=== PATIENT | female | born 1955 | race Asian ===

== ENCOUNTER 2017-06-02 13:38 | Inpatient (IN) | payer MEDICAID ==
--- NOTE | 2017-06-02 14:30 | ED Physician Chart ---
ED Chief Complaint/HPI - Patient Information Date Seen:: 06/02/17 Time Seen:: 14:00 Chief Complaint:: Chest Pain History of Present Illness:: onset x one day of intermittent, exertional, pressure type chest pain, dyspnea, and anxiety; pt denies trauma, H/as, S/T, neck pain, cough, Abd. Pain, A/N/V/D/C , fever, chills, or urinary s/s Allergies:: Allergies Allergy/AdvReac Type Severity Reaction Status Date / Time No Known Allergies Allergy Verified 04/06/16 17:24 Vitals:: Vital Signs - 8 hr 06/02/17 14:04 Temp 98.1 F HR 80 RR 16 BP 154/88 O2 Sat % 98 Historian:: Patient Review:: Nurse's Note Reviewed ED Review of Systems - Review of Systems General/Constitutional: No fever, No chills, No weight loss, No weakness, No diaphoresis, No edema, No loss of appetite Skin: No skin lesions, No rash, No bruising Head: No headache, No light-headedness Eyes: Acuity change, Pain, No pain, No diplopia ENT: No earache, No nasal drainage, No sore throat, No tinnitus Neck: No neck pain, No swelling, No thyromegaly, No stiffness, No mass noted Cardio Vascular: Chest pain, No palpitations, No PND, No orthopnea, No edema Pulmonary: SOB, No cough, No sputum, No wheezing GI: No nausea, No vomiting, No diarrhea, No pain, No melena, No hematochezia, No constipation, No hematemesis G/U: No dysuria, No frequency, No hematuria Director Housekeeping: No vaginal discharge, No abnormal vaginal bleed, No contraction Musculoskeletal: No bone or joint pain, No back pain, No muscle pain Endocrine: No polyuria, No polydipsia Psychiatric: No prior psych history, No depression, No anxiety, No suicidal ideation, No homicidal ideation, No auditory hallucination, No visual hallucination Hematopoietic: No bruising, No lymphadenopathy Allergic/Immuno: No urticaria, No angioedema Neurological: No syncope, No focal symptoms, No weakness, No paresthesia, No headache, No seizure, No dizziness, No confusion, No vertigo ED Past Medical History - Past Medical History Obtainable: Yes Past Medical History: Other (Glaucoma) Family History: HTN Social History: Non Smoker, No Alcohol, No Drug Use, Single Surgical History: None Psychiatricy History: None Medication: Reviewed Family Medical History - Family Member Father Ethnicity: Non- Living Status: Hx Family Cancer: Yes Hx Family Hypertension: Yes ED Physical Exam - Physical Examination General/Constitutional: Awake, Well-developed, well-nourished, Alert, No distress, GCS 15, Non-toxic appearing, Ambulatory Head: Atraumatic Eyes: Lids, conjuctiva normal, PERRL, EOMI Skin: Nl inspection, No rash, No skin lesions, No ecchymosis, Well hydrated, No lymphadenopathy ENMT: External ears, nose nl, TM canals nl, Nasal exam nl, Lips, teeth, gums nl , Oropharynx nl, Tonsils nl Neck: Nontender, Full ROM w/o pain, No JVD, No nuchal rigidity, No bruit, No mass, No stridor Respiratory: Nl effort/Exclusion, Clear to Auscultation, No Wheeze/Rhonchi/Rales Cardio Vascular: RRR, No murmur, gallop, rubs, NL S1 S2, Carotid/Femoral/Distal pulses equal bilaterally GI: No tenderness/rebounding/guarding, No organomegaly, No hernia, Normal BS's, Nondistended, No mass/bruits, No McBurney tenderness : No CVA tenderness Extremities: No tenderness or effusion, Full ROM, normal strength in all extremities, No edema, Normal digits & nails Neuro/Psych: Alert/oriented, DTR's symmetric, Normal sensory exam, Normal motor strength, Judgement/insight normal, Mood normal, Normal gait, No focal deficits Misc: Normal back, No paraspinal tenderness ED Labs/Radiology/EKG Results - Lab Results Comments:: Elevated Triglycerides and Cholesterol Levels - Radiology Results Comments:: CXR: NAD; COPD - EKG Interpretations EKG Time:: 14:41 Rate & Rhythm: 83; NSR Comments:: T-Wave Inversions; non-specific st-t changes ED Septic Shock - . Is Septic Shock (SBP<90, OR Lactate>4 mmol\L) present?: No - <6hrs of presentation: Vital Signs: Vital Signs - 8 hr 06/02/17 14:04 Temp 98.1 F HR 80 RR 16 BP 154/88 O2 Sat % 98 ED Reassessment (Disposition) - Diagnosis Diagnosis:: Dx: Myocardial Ischemia; Chest Pain; Dyspnea; Hyperlipidemia
[2017-06-02 14:48] LABS: % BASOPHILS 0.5 % (0.0-2.0); % EOSINOPHILS 3.3 % (0.0-5.0); % LYMPHOCYTES 38.7 % (20.0-50.0); % MONOCYTES 6.7 % (2.0-10.0); % NEUTROPHILS 50.8 % (40.0-80.0); EOSINOPHILE ABSOLUTE 0.2 Th/cmm (0.1-0.4); HEMATOCRIT 41.8 % (41.0-60); HEMOGLOBIN 14.2 gm/dL (12-16); LYMPHOCYTE ABSOLUTE 2.4 Th/cmm (1.5-3.0); MEAN CELL VOLUME 89.9 fl (81-100); MEAN CORPUSCULAR HEMOGLOBIN 30.6 pg (27.0-31.0); MEAN PLATELET VOLUME 7.2 fl; MONOCYTE ABSOLUTE 0.4 Th/cmm (0.3-1.0); NEUTROPHILE ABSOLUTE 3.2 Th/cmm (1.8-8.0); PLATELET COUNT 296 Th/cmm (150-400); RED BLOOD COUNT 4.65 Mil/cmm (3.80-5.10); RED CELL DISTRIBUTION WIDTH 11.9 % (11.5-20.0); WHITE BLOOD COUNT 6.2 Th/cmm (4.8-10.8)
--- NOTE | 2017-06-02 14:50 | Diagnostic Imaging Report ---
CHEST X-RAY: AP view INDICATION: pain COMPARISON: None FINDINGS: Chronic interstitial lung changes are noted. There is no focal consolidation or pleural effusions The heart is normal in size. The osseous structures demonstrate no acute abnormalities. IMPRESSION: Chronic interstitial lung changes. No focal consolidation identified.
[2017-06-02] MEDS ORDERED: Aspirin 325 mg EC PO ONE (14:58)
[2017-06-02 15:07] LABS: ALBUMIN 4.9 gm/dL (3.7-5.3); ALKALINE PHOSPHATASE 71 U/L (34-104); ANION GAP 11.6 (7.0-16.0); BILIRUBIN,TOTAL 0.4 mg/dL (0.3-1.0); BUN - UREA NITROGEN 12 mg/dL (7-25); CALCIUM SERUM 9.6 mg/dL (8.6-10.3); CARBON DIOXIDE 27.4 mEq/L (21.0-31.0); CHLORIDE 103 mEq/L (98-107); CHOLESTEROL 256 mg/dL (<200); CREATININE - SERUM 0.6 mg/dL (0.6-1.2); CREATININE KINASE 117 U/L (30-223); GFR AFRICAN-AMERICAN > 60.0 ml/min (>90); GFR NON AFRICAN-AMERICAN > 60.0 ml/min; GLUCOSE 93 mg/dL (70-105); HDL -HIGH DENSITY LIPOPROTEIN 45 mg/dL (23-92); SGOT 33 U/L (13-39); SGPT/ALT 45 U/L (7-52); SODIUM SERUM 138 mEq/L (136-145); TOTAL PROTEIN,SERUM 7.4 gm/dL (6.0-8.3); TRIGLYCERIDES 459 mg/dL (<150)
[2017-06-02 15:21] LABS: DDIMER QUANT 100 ng/mL (100-400)
[2017-06-02 15:22] LABS: INR 0.91 (0.5-1.4); PROTHROMBIN TIME (TEST) 9.5 SECONDS (9.5-11.5)
[2017-06-02] MEDS ORDERED: Aspirin 81mg Chewable Tab ONE (15:24)
[2017-06-02] MEDS ORDERED: Morphine Sulfate 2 mg/mL 1mL Syr IM PRN (17:29)
[2017-06-03 06:21] VITALS: BP 128/62
[2017-06-03] MEDS: D5-0.45NS 1,000 ML IV SCH ×2 (06:54→20:15)
--- NOTE | 2017-06-03 16:36 | Consultation ---
DATE OF CONSULTATION: 06/03/[address] Rajat Carr. HISTORY OF PRESENT ILLNESS: This is a 61-year-old oriental female patient who came to the Emergency Room complaining of shortness of breath. The patient had chest pain mostly on the right side, increased with deep breathing and movement. PAST MEDICAL HISTORY: The patient has history of glaucoma. FAMILY HISTORY: Hypertension. SOCIAL HISTORY: No history of smoking, alcohol abuse. ALLERGIES: No known allergies. PHYSICAL EXAMINATION: VITAL SIGNS: Blood pressure 150/80, pulse 70, and respirations 20. HEAD: Normocephalic. No lumps or bumps. EYES: Pupils equal, reactive to light. Fundi show AV nicking, sclerae white, conjunctivae pink. NECK: Carotid 2+. Normal upstroke. JVD flat. Thyroid not palpable. Lymph nodes not palpable. CHEST: Shows increased AP diameter. No kyphosis, scoliosis. LUNGS: Bilateral bronchovesicular breath sounds. HEART: PMI fifth intercostal space with lateral to midclavicular line. S1, S2. No S3, S4, soft systolic murmur. ABDOMEN: Soft. Liver, spleen not palpable. No organomegaly. Bowel sounds active. NEUROLOGIC: Unremarkable. EXTREMITIES: Peripheral pulses 2+. No pedal edema. CLINICAL IMPRESSION: Atypical chest pain, hyperlipidemia, and glaucoma. PLAN: The patient's EKG unremarkable. We will get troponin level, EKG, echocardiogram. JOB# [id number]
[2017-06-03] MEDS ORDERED: VTE Chemical Prophylaxis Screen/Admission MC PRN (17:09)
--- NOTE | 2017-06-03 19:35 | History & Physical ---
ADMIT DATE: 06/03/2017 REASON FOR ADMISSION: This patient was admitted to evaluate for the atypical chest pain, hyperlipidemia and history of glaucoma. HISTORY OF PRESENT ILLNESS: This patient is a 61-year-old female who lives [place] country and also is working. She currently lives with her . She experienced a tightness of the chest 2 days ago and whole night she could not sleep. She slept only for 2 hours and then prior to the admission, she went to the hospital with the same symptoms of tightness of the chest and lethargy. In the Emergency Room, all the workup has been done. They did the cardiac enzymes, which were negative and her CPK was normal and lactic acidosis is not there and most of the labs were all done and they were all normal. The only abnormal results were seen in the cholesterol, cholesterol was 256 and triglycerides were 459 and CPK was 117 and D-dimer was 100 and BNP was also low. Her electrolytes were normal and her GFR was normal and they did a chest x-ray, which also showed no pathology and BNP was 20.7 and then she received a 360 mg of aspirin in the Emergency Room and then she was admitted here for the observation with a diagnosis of atypical chest pain and we repeated the troponin in 8 hours, which was also less than 0.01 and we had a Cardiology consult done and Cardiology, Dr. Dereck Melendez and he is going to do an echocardiogram. On questioning the patient, she said that she felt anxious and that she had such an anxiety attack even in 2011 and now lately it is increasing because she has a 35-year-old daughter who lives in the [facility] and she wanted to see her, but she cannot go see her secondary to her finalization of her visa status in this country and currently, she is with her. She is to another second and so these precipitated her anxiety that is what she thinks and that is how it resulted into the atypical chest pain. She is a patient of mine and last visit in our clinic was in 02/10 and she had abnormal lipids and for the past 3 months, we gave a trial of a diet and exercise and she is supposed to come back this month, but she ended up in the hospital here. SOCIAL HISTORY: She lives with the . She has a 35-year-old daughter in the [facility] and she works and she does not have any toxic habits of smoking or alcohol consumption. FAMILY HISTORY: Significant for lung cancer. Her father had it, he was a smoker, but he got the lung cancer after quitting the smoking for 40 years and other than that, there is no other significant family health history is known. REVIEW OF SYSTEMS: All the 12-point review of system was negative. She looks very comfortable, afebrile. No chest pain, no diarrhea, no vomiting, no nausea, no leg pain. All the other symptoms are negative. PHYSICAL EXAMINATION: Shows: VITAL SIGNS: Temperature 98.4, pulse 77, respirations 18, blood pressure 133/69 and saturating 98% on room air. HEENT: Head is atraumatic and normocephalic. Eyes: Pupils are reactive to light equally and bilaterally. Ear, nose, mouth and throat are within normal limits. NECK: Supple. No lymphadenopathy noted. CHEST: Normal shaped. LUNGS: Clear to auscultate. CARDIAC MARIE: S1 and S2 heard with regular rate and rhythm. ABDOMEN: Soft and bowel sounds present. EXTREMITIES: Had no clubbing, no cyanosis, no edema. GENITOURINARY: No CVA tenderness noted and normal female by external examination. ASSESSMENT: At this time is atypical chest pain; history of hyperlipidemia, especially triglycerides; osteoarthritis; glaucoma and probable anxiety attacks or panic attacks. PLAN: To continue the present management and I started her on Lopid 600 mg b.i.d. I will also get a psych evaluation just to evaluate for her anxiety disorder and prescribed some medication for her and after that we will follow her in the clinic with a followup with another psychiatrist and today, the patient is much better and less anxious, so after the echocardiogram and psych evaluation the patient will be probably discharged tomorrow. JOB# [id number]
--- NOTE | 2017-06-04 09:17 | Consultation ---
DATE OF CONSULTATION: 06/04/2017 REQUESTING PHYSICIAN: Dr. Carr. REASON FOR CONSULTATION: Anxiety. HISTORY OF PRESENT ILLNESS: This patient is a 61-year-old [place] woman admitted here for the chest pain and workup has been done and this has been negative and a psychiatric consultation is called to address the issue of the anxiety. Staff was spoken to. The patient is interviewed and the patient has been cooperative and has been mentioning that she had too stressful of a job in the [employer] [employer] [facility] [employer] at one time and came with a problem like this one and had been thoroughly investigated. When it comes to the chest pain and it came negative and the patient is stating that she was having a little bit of tightness of chest yesterday, but she states that she does not have any problems today. The patient is willing to seek counseling and the patient; however, states that she is not depressed and she does not have any major stressful situation in her life, but patient is open for counseling and certified social workers in health care have been given the referrals for the counseling facilities. PAST PSYCHIATRIC HISTORY: None. MEDICAL HISTORY: The patient is admitted for chest pain. SUBSTANCE ABUSE HISTORY: None. PHYSICAL OR SEXUAL ABUSE HISTORY: None. LEGAL PROBLEMS: None at this time. SOCIAL HISTORY: The patient is , living with her . The patient has a son who is grown up. FAMILY HISTORY: No family history of anxiety or depression. MENTAL STATUS EXAMINATION: The patient is a 61-year-old, looking her stated age, cooperative. Eye contact is fair. Mood is noted to be anxious. Affect is appropriate. Not suicidal or homicidal. Insight and judgment are fair. Impulse control is also noted to be fair. The patient is not presenting with any threats to harm self or others. The patient has been able to verbalize the concerns rather than to act out. The patient denies any active hallucinations or delusions are noted. DIAGNOSTIC IMPRESSION: Anxiety disorder, not otherwise specified. PLAN: To refer the patient to counseling first and if that does not work out, the patient is advised to seek medication management. JOB# [id number]
--- NOTE | 2017-06-04 12:43 | Discharge Summary ---
General Discharge Summary - Discharge Summary Date of Admission: 06/02/17 Admitting Diagnosis: chest pain, Patient Problems: All Active Problems Subconjunctival hemorrhage of left eye (Acute) H11.32 Discharge Date: 06/04/17 Discharge Diagnosis: Atypical chest pain. Hypertriglyceridemia. probabale Anxiety disorder Hospital Course: Patient had no chest pain during her stay with us. Cardiology was consulted and the Echo was done . Echo was normal. Psych consult done by Dr Braun to evaluate the proble anxiety disorder. His recommendations are to have psychological therapy to addres her anxiety issues and to seek medications if that fails. overall did well, no chest pain, vital normal and stable. Troponin was normal. Condition at Discharge: Stable Disposition: PT DISCHARGED HOME Home Medications: Home Medication Medication Instructions Recorded Type Gemfibrozil [Lopid*] 600 mg PO BIDAC 30 Days #60 tab NS 06/04/17 Rx Inpatient Medications: Current Medications Acetaminophen (Tylenol) 650 mg PO Q4H PRN PRN Reason: Pain (Mild) Stop: 08/01/17 17:36 Last Admin: 06/03/17 10:17 Dose: 650 mg Gemfibrozil (Lopid) 600 mg PO BIDAC [facility] Stop: 08/02/17 07:29 Last Admin: 06/04/17 06:46 Dose: 600 mg Heparin Sodium (Porcine) (Heparin) 5,000 units SUBQ Q12H [facility] Stop: 08/02/17 20:59 Last Admin: 06/04/17 09:25 Dose: 5,000 units Dextrose/Sodium Chloride (D5-0.45ns) 1,000 mls @ 70 mls/hr IV .[id number] [facility] Stop: 08/01/17 17:44 Last Admin: 06/03/17 20:15 Dose: 70 mls/hr Ibuprofen (Motrin) 600 mg PO Q6HR PRN PRN Reason: Pain (Moderate) Stop: 08/01/17 17:59 Miscellaneous (Vte Chemical Prophylaxis Screen/ Admission) 1 ea [facility] PRN PRN PRN Reason: PROTOCOL Stop: 08/02/17 17:08 Prescriptions: Gemfibrozil [Lopid*] 600 mg PO BIDAC 30 Days #60 tab NS Consults and Follow-Up: Rajat Carr [Primary Care Provider] -
--- NOTE | 2017-06-04 17:14 | Cardiology ---
06/03/2017 ECHOCARDIOGRAM [address] Patient of Dr[address] Carr. M-MODE ECHOCARDIOGRAM: Mitral valve, anterior leaflet of mitral valve shows normal excursion, EF velocity. Posterior leaflet of the mitral valve shows normal excursion. Left ventricle posterior wall showed normal thickness, excursion. Interventricular septum showed normal thickness, excursion. Ejection fraction 60%. Left atrium normal. Aortic root shows normal dimension, normal excursion of aortic leaflets. CONCLUSION: Normal M-mode echo, ejection fraction 60%. 2D echo on the same patient, long axis view show normal-sized left ventricle with normal wall motion. Mitral valve shows normal excursion. Left atrium normal. Aortic root shows normal dimension, normal excursion of aortic leaflets. Short axis view of mitral valve normal. Short axis view of aortic valve normal. Apical four chamber view showed normal-sized left ventricle, left atrium, right ventricle, right atrium, tricuspid and mitral valve. Ejection fraction 60%. CONCLUSION: Normal 2D echo, ejection fraction 60%. Doppler study showed trace tricuspid regurgitation. [facility]# [id number]
== END 2017-06-04 14:35 | disposition home or self-care (01) | DRG 198 ==
LOC: ER 13:38 → TELE 18:55 → MSI 06-04 12:05
PROVIDERS: ADMIT General Practice; ATTEND General Practice
DX: R07.89 Other chest pain (principal); I25.9 Chronic ischemic heart disease, unspecified; E78.1 Pure hyperglyceridemia; E78.5 Hyperlipidemia, unspecified; M19.90 Unspecified osteoarthritis, unspecified site; H40.9 Unspecified glaucoma; F41.9 Anxiety disorder, unspecified; Z82.49 Family history of ischemic heart disease and other diseases of the circulatory system
CPT/HCPCS: 36415-UA; 71045-TC; 80053-TC; 80061-TC; 82550-TC; 83880-TC; 84484-TC; 85025-TC; 85379-TC; 85610-TC; 93005; 94760; J1644; Z7610